=== PATIENT | female | born 1950 | race Caucasian/White ===

== ENCOUNTER 2019-06-06 10:17 | Emergency (ER) | payer MEDICARE, OTHER ==
[2019-06-06] MEDS ORDERED: BENZONATATE 100 MG CAPSULE PO STA (12:43)
[2019-06-06] MEDS ORDERED: ALBUTEROL NEB 2.5 MG/3 ML INH STA (12:43)
--- NOTE | 2019-06-06 12:48 | ED Physician Documentation ---
PD HPI URI - Stated complaint Stated Complaint: COLD/COUGH - Chief complaint Chief Complaint: Resp - History obtained from History obtained from: Patient - History of Present Illness Timing - onset: How many weeks ago (2) Timing duration: Weeks (2) Timing details: Gradual onset Pain level max: 3 Pain level now: 2 Associated symptoms: Fever, Nasal congestion, Rhinorrhea, Sore throat, Productive cough. 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 - Past Surgical History Past Surgical History: Yes /SHREDDER OPERATOR: Hysterectomy - Present Medications Home Medications: Ambulatory Orders Medication Instructions Recorded Confirmed Benzonatate [Tessalon Perle] 100 - 200 mg PO TID PRN #30 capsule 06/06/19 Cetirizine HCl/Pseudoephedrine 1 each PO BID PRN #30 tab.er.12h 06/06/19 [Zyrtec-D Tablet] Doxycycline Hyclate 100 mg PO BID #20 capsule 06/06/19 - Allergies Allergies/Adverse Reactions: Allergies Allergy/AdvReac Type Severity Reaction Status Date / Time codeine Allergy Emesis Verified 06/06/19 10:25 Penicillins Allergy Hives Verified 06/06/19 10:25 - Social History Does the pt smoke?: No Smoking Status: Never smoker Does the pt drink ETOH?: No Does the pt have substance abuse?: No PD ED PE NORMAL - Vitals Vital signs reviewed: Yes - General General: Alert and oriented X 3, No acute distress - HEENT HEENT: Ears normal, Moist mucous membranes, Pharynx benign - Neck Neck: Supple, no meningeal sign, No adenopathy - Cardiac Cardiac: RRR - Respiratory Respiratory: No respiratory distress, Other (Rhonchi bilaterally) - Abdomen Abdomen: Soft, Non tender, Non distended - Derm Derm: Warm and dry, No rash - Neuro Neuro: Alert and oriented X 3 - Psych Psych: Normal mood, Normal affect Results - Vitals Vitals: Vital Signs - 24 hr 06/06/19 06/06/19 06/06/19 10:22 12:35 12:57 Temperature 37 C 37.2 C 36.8 C Heart Rate 73 80 66 Respiratory 17 20 18 Rate Blood Pressure 136/68 H 124/90 H 135/82 H O2 Saturation 97 97 98 Oxygen O2 Source Room air - Labs Labs: Laboratory Tests 06/06/19 11:03 Influenza A (Rapid) Negative Influenza B (Rapid) Negative - Rads (name of study) cxr Radiology: Prelim report reviewed, EMP read contemporaneously, See rad report (Peribronchial thickening may represent bronchitis ) PD MEDICAL DECISION MAKING - ED course Complexity details: reviewed results, re-evaluated patient, considered differential, d/w patient ED course: Patient presents to the emergency department. Appears to have a developing consolidation in the right lower lobe on my read of the chest x-ray. Radiology impression is peribronchial thickening. Possible bronchitis. We will place her on doxycycline. She is well-appearing, nontoxic, but is continuing to have fevers despite 2 weeks of symptoms. No hypoxia. No respiratory distress. Patient counseled regarding signs and symptoms for which I believe and urgent re-evaluation would be necessary. Patient with good understanding of and agreement to plan and is comfortable going home at this time This document was made in part using voice recognition software. While efforts are made to proofread this document, sound alike and grammatical errors may occur. Departure - Departure Disposition: 01 Home, Self Care Clinical Impression: Pneumonia Qualifiers: Pneumonia type: due to unspecified organism Laterality: right Lung location: lower lobe of lung Qualified Code(s): J18.9 - Pneumonia, unspecified organism Condition: Good Instructions: ED Pneumonia Adult Follow-Up: your,doctor in 1 week if not better. [Other] Prescriptions: Benzonatate [Tessalon Perle] 100 - 200 mg PO TID PRN #30 capsule PRN Reason: Cough Cetirizine HCl/Pseudoephedrine [Zyrtec-D Tablet] 1 each PO BID PRN #30 tab.er.12h PRN Reason: nasal congestion Doxycycline Hyclate 100 mg PO BID #20 capsule Comments: Take all antibiotics until gone. Return if you worsen. Follow-up with your doctor for further care. Discharge Date/Time: 06/06/19 13:08
--- NOTE | 2019-06-06 12:56 | XRAY Report ---
Reason: cough, congestion Procedure Date: 06/06/2019 Accession Number: [id number] / [id number] Procedure: XR - Chest 2 View X-Ray CPT Code: 17047 Final Report FULL RESULT: EXAM: CHEST RADIOGRAPHY EXAM DATE: 06/06/2019 11:00 AM. CLINICAL HISTORY: Cough, congestion. COMPARISON: None. TECHNIQUE: 2 views. FINDINGS: Lungs/Pleura: Peribronchial thickening No focal opacities evident. No pleural effusion. No pneumothorax. Normal volumes. Mediastinum: Heart and mediastinal contours are unremarkable. Other: None. IMPRESSION: Peribronchial thickening may represent bronchitis [facility]
[2019-06-06 12:57] VITALS: BP 135/82
== END 2019-06-06 13:08 | disposition home or self-care (01) ==
LOC: ED 10:17
DX: J18.9 Pneumonia, unspecified organism (principal)
CPT/HCPCS: 71046; 87275; 87276; 99284; A9270